=== PATIENT | male | born 1950 | race Caucasian/White ===

== ENCOUNTER 2021-02-03 10:10 | Emergency (ER) | payer OTHER, MEDICARE ==
[~2021-02-03] VITALS: Ht 185.4 cm; Wt 108.9 kg
[~2021-02-03 10:10] MED LIST: ATEN25 PO; ATOR20 PO; CYAN500 PO; METF500 PO; MIRALAX17 GM PO; NOVOLIN 70100 UNIT/4 SC; OMEP20ER PO; PREG200 PO; Prinivil10 MG; SENN187 PO; SILD50TA PO; TAMS.4ER PO
[2021-02-03] MEDS ORDERED: ATOR10 PO (10:30)
[2021-02-03] MEDS ORDERED: ATEN25 PO (10:30)
[2021-02-03] MEDS ORDERED: B-121000 MC4 PO (10:31)
[2021-02-03] MEDS ORDERED: FAMO20 PO (10:31)
[2021-02-03] MEDS ORDERED: NOVOLIN 70100 UNIT/3 SC ×2 (10:31)
[2021-02-03] MEDS ORDERED: Prinivil10 MG PO (10:32)
[2021-02-03] MEDS ORDERED: LATANOPROST2.5 M3 BOTHEYES (10:32)
[2021-02-03] MEDS ORDERED: METF500 PO (10:32)
[2021-02-03] MEDS ORDERED: Percocet 5-3251 EACH PO (10:33)
[2021-02-03] MEDS ORDERED: SENN187 PO (10:33)
[2021-02-03] MEDS ORDERED: SILD50TA PO (10:33)
[2021-02-03] MEDS ORDERED: Vitamin B Comple1 EA PO (10:34)
[2021-02-03] MEDS ORDERED: TAMS.4ER PO (10:34)
[2021-02-03 10:53] LABS: BASOPHILS ABSOLUTE AUTO 0.04 K/mm3 (0.00-0.23); BASOPHILS PERCENT AUTO 1 % (0-2); EOSINOPHILS ABSOLUTE AUTO 0.27 K/mm3 (0.00-0.68); EOSINOPHILS PERCENT AUTO 4 % (0-6); Hematocrit 40.9 % (37.0-53.0); Hemoglobin 13.2 g/dL (13.5-17.5); IMMATURE GRAN ABSOLUTE AUTO 0.02 K/mm3 (0.00-0.10); IMMATURE GRAN PERCENT AUTO 0 % (0-1); LYMPHOCYTES ABSOLUTE AUTO 1.31 K/mm3 (0.84-5.20); LYMPHOCYTES PERCENT AUTO 18 % (21-46); MONOCYTES ABSOLUTE AUTO 0.63 K/mm3 (0.16-1.47); MONOCYTES PERCENT AUTO 9 % (4-13); Mean Corpuscular HGB 28.7 pg (26.0-34.0); Mean Corpuscular HGB Conc 32.3 g/dL (31.5-36.5); Mean Corpuscular Volume 89 fL (80-100); Mean Platelet Volume 11.2 fL (9.1-12.4); NEUTROPHILS ABSOLUTE AUTO 5.07 K/mm3 (1.96-9.15); NEUTROPHILS PERCENT AUTO 69 % (41-73); Platelet Count 164 K/mm3 (150-400); RDW Coefficient Variation 14.1 % (11.7-14.2); RDW Standard Deviation 45.7 fL (35.1-46.3); White Blood Cell Count 7.34 K/mm3 (4.00-11.30)
[2021-02-03 11:09] LABS: Alanine Aminotransfer (ALT/SGP 27 U/L (12-78); Albumin, Blood 3.2 g/dL (3.4-5.0); Albumin/Globulin Ratio 0.9 (0.8-1.8); Alk Phos 111 U/L (50-136); Anion Gap 4 mmol/L (6-16); Aspartate Aminotrans (AST/SGOT 14 U/L (12-37); Bilirubin, Total 0.4 mg/dL (0.1-1.0); Blood Urea Nitrogen 30 mg/dL (8-24); Bun/Creatinine Ratio 25.2 (12.0-20.0); CO2, Blood 27 mmol/L (21-32); Calcium, Blood 8.6 mg/dL (8.5-10.1); Chloride, Blood 107 mmol/L (98-108); Creatinine, Blood 1.19 mg/dL (0.60-1.20); Globulin, Blood 3.7 g/dL (2.2-4.0); Glomerular Filtration Rate >60 (60-); Glucose, Blood 292 mg/dL (70-99); Potassium, Blood 4.4 mmol/L (3.5-5.5); Sodium, Blood 138 mmol/L (136-145); Total Protein, Blood 6.9 g/dL (6.4-8.2)
[2021-02-03 12:37] LABS: Troponin I <0.015 ng/mL (0.000-0.040)
[2021-02-03] MEDS ORDERED: MECL12.5 PO (14:42)
== END 2021-02-03 15:21 | disposition home or self-care (01) ==
LOC: ER 10:10
PROVIDERS: Emergency Medicine
DX: R42 Dizziness and giddiness (principal); I10 Essential (primary) hypertension; E78.5 Hyperlipidemia, unspecified; Z79.4 Long term (current) use of insulin; Z79.899 Other long term (current) drug therapy
CPT/HCPCS: 70450; 71046; 80053; 82947; 83690; 84484; 85025; 93005; 93010; 99285-25; A9270; J7030

== ENCOUNTER 2021-04-29 17:47 | Inpatient (IN) | payer OTHER, MEDICARE ==
[~2021-04-29] VITALS: Ht 185.4 cm; Wt 113.4 kg
[~2021-04-29 17:47] MED LIST changes: +ATOR10 PO; +B-121000 MC4 PO; +FAMO20 PO; +LATANOPROST2.5 M3 BOTHEYES; +MECL12.5 PO; +NOVOLIN 70100 UNIT/3 SC; +Percocet 5-3251 EACH PO; +Prinivil10 MG PO; +Vitamin B Comple1 EA PO
[2021-04-29 18:21] LABS: BASOPHILS ABSOLUTE AUTO 0.01 K/mm3 (0.00-0.23); BASOPHILS PERCENT AUTO 0 % (0-2); EOSINOPHILS PERCENT AUTO 0 % (0-6); Hematocrit 41.3 % (37.0-53.0); Hemoglobin 13.8 g/dL (13.5-17.5); IMMATURE GRAN ABSOLUTE AUTO 0.09 K/mm3 (0.00-0.10); IMMATURE GRAN PERCENT AUTO 1 % (0-1); LYMPHOCYTES ABSOLUTE AUTO 0.56 K/mm3 (0.84-5.20); LYMPHOCYTES PERCENT AUTO 5 % (21-46); MONOCYTES ABSOLUTE AUTO 0.51 K/mm3 (0.16-1.47); MONOCYTES PERCENT AUTO 4 % (4-13); Mean Corpuscular HGB 28.1 pg (26.0-34.0); Mean Corpuscular HGB Conc 33.4 g/dL (31.5-36.5); Mean Corpuscular Volume 84 fL (80-100); Mean Platelet Volume 11.5 fL (9.1-12.4); NEUTROPHILS ABSOLUTE AUTO 10.43 K/mm3 (1.96-9.15); NEUTROPHILS PERCENT AUTO 90 % (41-73); Platelet Count 197 K/mm3 (150-400); RDW Coefficient Variation 14.1 % (11.7-14.2); RDW Standard Deviation 43.7 fL (35.1-46.3); Red Blood Cell Count 4.91 M/mm3 (4.30-5.90)
[2021-04-29 19:02] LABS: Albumin, Blood 2.7 g/dL (3.4-5.0); Albumin/Globulin Ratio 0.6 (0.8-1.8); Bilirubin, Total 0.4 mg/dL (0.1-1.0); Bun/Creatinine Ratio 31.4 (12.0-20.0); Calcium, Blood 9.1 mg/dL (8.5-10.1); Creatinine, Blood 2.2 mg/dL (0.60-1.20); Globulin, Blood 4.6 g/dL (2.2-4.0); Potassium, Blood 5.3 mmol/L (3.5-5.5); Total Protein, Blood 7.3 g/dL (6.4-8.2)
[2021-04-29 19:54] LABS: Base Excess Venous -3.9 mmol/L; PCO2 Venous 39.1 mmHg (38-42); PO2 Venous 45.1 mmHg (38-42); pH Blood Venous 7.35 (7.34-7.37)
[2021-04-29 19:56] LABS: Beta-hydroxybutyrate 24.2 mg/dL (0.2-2.8); Troponin I 0.06 ng/mL (0.000-0.040)
[2021-04-29 21:02] LABS: SARS-Cov-2 (COVID-19) PCR, MMC POSITIVE (NEGATIVE)
[2021-04-29 21:03] LABS: Source, Urine Catheter
[2021-04-29 21:06] LABS: Bilirubin, Urine Neg (Neg); Blood, Urine 4+ (Neg); Glucose Qualitative, Urine 4+ (Neg); Ketones, Urine 2+ (Neg); Leukocyte Esterase, Urine Neg (Neg); Nitrite, Urine Neg (Neg); Protein, Urine 2+ (Neg); Urobilinogen, Urine NORM (Normal)
[2021-04-29 21:14] LABS: Appearance, Urine Clear (Clear); Color, Urine Yellow (P-Yellow)
[2021-04-29 21:15] LABS: Red Blood Cells, Urine 0-2 /hpf (0-2); White Blood Cells, Urine 0-2 /hpf (0-5)
[2021-04-29 21:23] LABS: Squamous Epithelial Cells Rare /hpf (Few)
[2021-04-29 21:24] LABS: Bacteria Few /hpf
[2021-04-29 21:25] LABS: Amorphous Light (0-Heavy)
[2021-04-29 21:27] LABS: Glucose, Blood 640 mg/dL (70-99)
[2021-04-30 01:38] LABS: Glucose, Blood 472 mg/dL (70-99)
[2021-04-30 06:24] LABS: BASOPHILS ABSOLUTE AUTO 0.01 K/mm3 (0.00-0.23); BASOPHILS PERCENT AUTO 0 % (0-2); EOSINOPHILS PERCENT AUTO 0 % (0-6); Hematocrit 39.4 % (37.0-53.0); Hemoglobin 13.3 g/dL (13.5-17.5); Mean Corpuscular HGB 28.3 pg (26.0-34.0); Mean Corpuscular HGB Conc 33.8 g/dL (31.5-36.5); Mean Corpuscular Volume 84 fL (80-100); Mean Platelet Volume 11.2 fL (9.1-12.4); Platelet Count 183 K/mm3 (150-400); White Blood Cell Count 10.61 K/mm3 (4.00-11.30)
[2021-04-30 06:27] LABS: IMMATURE GRAN ABSOLUTE AUTO 0.08 K/mm3 (0.00-0.10); IMMATURE GRAN PERCENT AUTO 1 % (0-1); LYMPHOCYTES ABSOLUTE AUTO 0.62 K/mm3 (0.84-5.20); LYMPHOCYTES PERCENT AUTO 6 % (21-46); MONOCYTES ABSOLUTE AUTO 0.33 K/mm3 (0.16-1.47); MONOCYTES PERCENT AUTO 3 % (4-13); NEUTROPHILS ABSOLUTE AUTO 9.57 K/mm3 (1.96-9.15); NEUTROPHILS PERCENT AUTO 90 % (41-73)
[2021-04-30 06:55] LABS: Troponin I 0.065 ng/mL (0.000-0.040)
[2021-04-30 07:00] LABS: Albumin, Blood 2.4 g/dL (3.4-5.0); Albumin/Globulin Ratio 0.5 (0.8-1.8); Bilirubin, Total 0.3 mg/dL (0.1-1.0); Bun/Creatinine Ratio 37.2 (12.0-20.0); Calcium, Blood 9.3 mg/dL (8.5-10.1); Creatinine, Blood 1.48 mg/dL (0.60-1.20); Globulin, Blood 4.6 g/dL (2.2-4.0); Potassium, Blood 4.4 mmol/L (3.5-5.5)
[2021-04-30 07:17] LABS: Creatine Kinase MB 2.1 ng/mL (0.0-3.6); Creatine Kinase MB Index 0.3 (0.0-4.0)
--- NOTE | 2021-04-30 10:53 | NUR ---
Echocardiogram completed.
[2021-04-30 11:51] LABS: Troponin I 0.05 ng/mL (0.000-0.040)
--- NOTE | 2021-04-30 12:00 | NUR ---
UPDATE BLOOD SUGAR WAS CHECKED READING 164. INSULIN GTT WAS TITRATED DOWN TO 5 U/HR. CALL PLACED TO DR. KENYON. ORDERS TO STOP INSULIN GTT AND LET PATIENT EAT ADA DIET. BLOOD SUGAR TO BE RECHECKED AND MANAGED WITH MEDIUM SLIDING SCALE.
[2021-04-30 12:06] LABS: Creatine Kinase MB 2.7 ng/mL (0.0-3.6); Creatine Kinase MB Index 0.4 (0.0-4.0)
--- NOTE | 2021-04-30 12:28 | NUR ---
Pt arrived from ED, CBG taken noted below 200. Insulin gtt still infusing at 7 on arrival. CAll to Dr[address] Wilkinson to update on pt condition. New orders received. PT is sitting up in bed, eating lunch while primary RN is in room, doing nursing admission to the unit.
--- NOTE | 2021-04-30 15:23 | NUR ---
UPDATE PATIENT'S OXYGEN SATURATION DROPPED TO LOW 80S WITH MINIMAL EXERTION. NC CANNULA WAS CHANGED OVER TO OXYMIZER AT 10L. OXYGEN SATURATION MAINTAINING LOW TO MID 90S AT THIS TIME. PATIENT ENCOURAGED TO COUGH/DEEP BREATHE. PROVIDED WITH INCENTIVE SPIROMETER AND GREEN FLUTTER VALVE. PATIENT CURRENTLY SITTING UP IN CHAIR WITH THE HELP OF 2 STAFF MEMBERS, RESTING. CALL LIGHT IN REACH. BED ALARM ON.
--- NOTE | 2021-04-30 16:24 | NUR ---
97% spo2 on oximizer 10 l/min flow. Several minutes later noted spo2 had dropped to 88%. The pt had removed the oxymizer from his face completely. changed to nasal cannula, 3 l/min. He was using flutter valve and spo2 maintained at 88-89%, while still sitting up in chair. Increased oxygen delivery to 5 l/min, spo2 improved to 93% on 5 l/min delivery by n.c.
--- NOTE | 2021-04-30 18:54 | NUR ---
SHIFT SUMMARY PATIENT ADMITTED FROM ED MID MORNING. INSULIN GTT HAS BEEN OFF SINCE 1200, CBG CHECKS AND INSULIN COVERAGE ORDERED. PATIENT WAS ABLE TO GET UP TO CHAIR THIS AFTERNOON AND REMAINED UP TO CHAIR UNTIL AFTER DINNER. PATIENT WAS TRANSFERRED BACK TO BED WITH 2 ASSIST. PATIENT IS CURRENTLY ON 5L NC WITH OXYGEN SATURATION LOW 90%. PATIENT HAS PERIODS OF LOW OXYGEN SATURATION WITH ACTIVITY BUT QUICKLY RECOVERS. INCENTIVE SPIROMETER AND FLUTTER VALVE AT BEDSIDE TABLE. PATIENT HAS REMAINS ALERT AND ORIENTED TO TIME, SELF, AND PLACE. HE NEEDS REMINDED ABOUT KEEPING OXYGEN IN PLACE IN ORDER TO MAINTAIN SATURATIONS. BED ALARM IN PLACE FOR SAFETY. CALL LIGHT IS IN REACH.
--- NOTE | 2021-04-30 23:48 | NUR ---
ANGIOCATH FOUND IN BED WITH PT. OBSERVATION SHOWED THAT RIGHT AC 20G SL PIV WAS INTACT, FLUSHING WITH EASE. LEFT AC 22G PIV WAS NOT FOUND IN PLACE. ANGIOCATH DISCARDED WITH TIP INTACT NOTED. DENIES PAIN, OR DISCOMFORT AT THIS TIME.
--- NOTE | 2021-05-01 12:09 | NUR ---
Disoriented, uncertain of where he is. Having a hard time finding his words. Following directions, and stating simple sentences. Assisted up to the chair to eat lunch at this time. Stated that he didn't feel much like eating, but I encouraged him to eat since he is diabetic. he said, yes, I know. He is eating his lunch in the chair. Oxymizer O2 delivery increased from 10 l/min to 15 l/min during the transfer, as his spo2 dropped to 86% when he sat on the side of the bed. Now at 88-90%. Needs frequent reminders to keep eating. When asked how he feels, he says, :"I don't know." He was very weak and required 2 people for the stand pivot and transfer to the chair at side of bed.
--- NOTE | 2021-05-01 13:01 | NUR ---
assisted back to bed after lunch. He requires 2 people for transfer. Pt states he uses a walker at home. bed alarm on.
--- NOTE | 2021-05-01 18:33 | NUR ---
Pt has been alert, oriented to person, following directions, and surroundings. However, he is not oriented to place, date/time, and frequently forgetful of keeping his oxygen on, despite ongoing reminders all throughout the day. Wearing oxymizer at 10 l/min. C/o feeling exhausted. Appetite less than yesterday. He got up to the chair at lunch time and dinner, using gait belt and FWW. Significant weakness. states that he fell at home. PT states that he uses a walker at home. Noted some small bruises on the right lateral hip. NOrmal sinus rhythm by telemetry monitoring. Vital signs stable, blood sugars are slowly normalizing.
--- NOTE | 2021-05-02 06:15 | NUR ---
LYING ON LEFT SIDE FACING THE DOOR, UNABLE TO TOLERATE ATTEMPTS TO PRONE. HAS RESTED OFF AND ON THIS SHIFT. DROPLETTE PRECAUTIONS CONTINUE TO BE IN PLACE. CONTINUES ON O2 AT 5L/NC, TOLERATING WELL. BEDDING, GOWN, AND PULL UP CHANGED PRN D/T INCONTINENCE. PT CONTINUES TO TRY TO SIT ON THE SIDE OF THE BED WHEN HE FEELS THE URGE TO URINATE. BED ALARM ON AND ACTIVE. HAS BECOME A BIT MORE AWARE OF HIS NEEDS. O2 REAPPLIED MULTIPLE TIMES WHEN PT TAKES IT OFF AND LAYS IT IN THE BED NEXT TO HIM IN THE BED. DENIES FURTHER NEEDS OR WANTS AT THIS TIME. SAFETY MEASURES IN PLACE. WILL CONTINUE TO MONITOR AND GIVE HAND OFF TO ONCOMING SHIFT USING SBAR DURING BEDSIDE REPORT.
[2021-05-02 12:10] LABS: BASOPHILS ABSOLUTE AUTO 0.03 K/mm3 (0.00-0.23); BASOPHILS PERCENT AUTO 0 % (0-2); EOSINOPHILS PERCENT AUTO 0 % (0-6); Hematocrit 41.7 % (37.0-53.0); Hemoglobin 14.3 g/dL (13.5-17.5); IMMATURE GRAN ABSOLUTE AUTO 0.07 K/mm3 (0.00-0.10); IMMATURE GRAN PERCENT AUTO 1 % (0-1); LYMPHOCYTES ABSOLUTE AUTO 0.42 K/mm3 (0.84-5.20); LYMPHOCYTES PERCENT AUTO 4 % (21-46); MONOCYTES ABSOLUTE AUTO 0.63 K/mm3 (0.16-1.47); MONOCYTES PERCENT AUTO 6 % (4-13); Mean Corpuscular HGB 28.2 pg (26.0-34.0); Mean Corpuscular HGB Conc 34.3 g/dL (31.5-36.5); Mean Corpuscular Volume 82 fL (80-100); Mean Platelet Volume 11.4 fL (9.1-12.4); NEUTROPHILS ABSOLUTE AUTO 10.07 K/mm3 (1.96-9.15); NEUTROPHILS PERCENT AUTO 90 % (41-73); Platelet Count 263 K/mm3 (150-400); RDW Standard Deviation 41.3 fL (35.1-46.3); Red Blood Cell Count 5.07 M/mm3 (4.30-5.90); White Blood Cell Count 11.22 K/mm3 (4.00-11.30)
[2021-05-02 12:24] LABS: Albumin, Blood 2.4 g/dL (3.4-5.0); Anion Gap 10 mmol/L (6-16); Blood Urea Nitrogen 44 mg/dL (8-24); Bun/Creatinine Ratio 40.7 (12.0-20.0); CO2, Blood 21 mmol/L (21-32); Calcium, Blood 9.5 mg/dL (8.5-10.1); Chloride, Blood 115 mmol/L (98-108); Creatinine, Blood 1.08 mg/dL (0.60-1.20); Glomerular Filtration Rate >60 (60-); Glucose, Blood 153 mg/dL (70-99); Phosphorus, Blood 2.6 mg/dL (2.5-4.9); Potassium, Blood 4.1 mmol/L (3.5-5.5); Sodium, Blood 146 mmol/L (136-145)
--- NOTE | 2021-05-02 18:27 | NUR ---
PT TRANSFERRED TO [facility] IN [place], [place]. VITAL SIGNS STABLE. PT WAS SENT WITH BELONGINGS. PT WAS ABLE TO GET CT SCAN, LAB WORK, ADDITIONAL MEDS ADMINISTERED PRIOR TO ADMISSION. NURSE BARBER SPOKE TO PT'S KRISTEN AND INFORMED HER OF PT BEING TRANSFERRED.
== END 2021-05-02 15:02 | DRG 177 ==
LOC: ER 17:47 → SURS 19:58 → ERHOLD 19:58 → SURS 04-30 11:52
PROVIDERS: Internal Medicine; Student in an Organized Health Care Education/Training Program; ADMIT Internal Medicine
PROC: 8E0ZXY6 Isolation (ICD-10-PCS; principal; 2021-04-29)
PROC: 3E0333Z Introduction of Anti-inflammatory into Peripheral Vein, Percutaneous Approach (ICD-10-PCS; 2021-04-29)
PROC: XW033E5 Introduction of Remdesivir Anti-infective into Peripheral Vein, Percutaneous Approach, New Technology Group 5 (ICD-10-PCS; 2021-04-29)
DX: U07.1 COVID-19 (principal); J96.01 Acute respiratory failure with hypoxia; J12.82 Pneumonia due to coronavirus disease 2019; N17.9 Acute kidney failure, unspecified; G93.40 Encephalopathy, unspecified; E86.0 Dehydration; N18.9 Chronic kidney disease, unspecified; R77.8 Other specified abnormalities of plasma proteins; I12.9 Hypertensive chronic kidney disease with stage 1 through stage 4 chronic kidney disease, or unspecified chronic kidney disease; E11.22 Type 2 diabetes mellitus with diabetic chronic kidney disease; E11.65 Type 2 diabetes mellitus with hyperglycemia; E78.5 Hyperlipidemia, unspecified; Z79.4 Long term (current) use of insulin; Z79.899 Other long term (current) drug therapy; Z98.890 Other specified postprocedural states
CPT/HCPCS: 36415; 70450; 71045; 80053; 80069; 81001; 82010; 82550; 82553; 82803; 82947; 83605; 83880; 84484; 85025; 87040; 93005; 93010; 93306; 94762; 96361; 96374; 96375; 99285-25; A9270; J1100; J1650; J1815; J7030; J7120; U0004

== ENCOUNTER 2022-03-30 11:08 | Day surgery (SDC) | payer OTHER ==
[~2022-03-30] VITALS: Ht 185.4 cm; Wt 104.2 kg
--- NOTE | 2022-03-30 11:34 | NUR ---
03/30/22 1134 Tawnya Desai LEFT EYE @1125 [facility]ATRIZ LEFT EYE @ 1127 BY [facility].RONNIE
== END 2022-03-30 13:05 | disposition home or self-care (01) ==
LOC: ORSCSDS 11:08
PROVIDERS: Ophthalmology
PROC: 08RK3JZ Replacement of Left Lens with Synthetic Substitute, Percutaneous Approach (ICD-10-PCS; principal; 2022-03-30 12:30)
DX: H25.12 Age-related nuclear cataract, left eye (principal); H52.202 Unspecified astigmatism, left eye; E11.9 Type 2 diabetes mellitus without complications; I10 Essential (primary) hypertension; K21.9 Gastro-esophageal reflux disease without esophagitis; Z79.84 Long term (current) use of oral hypoglycemic drugs; Z79.899 Other long term (current) drug therapy
CPT/HCPCS: 82947; J2001; J2250; J3010; J3301; J7040; V2632

== ENCOUNTER 2022-04-06 09:58 | Day surgery (SDC) | payer OTHER ==
[~2022-04-06] VITALS: Ht 185.4 cm; Wt 103.8 kg
[2022-04-06] MEDS ORDERED: OZEMPIC1 MG/0.72 SQ (10:46)
--- NOTE | 2022-04-06 10:54 | NUR ---
04/06/22 1054 Rekha Vu AT 1040 [facility] 1041
== END 2022-04-06 12:12 | disposition home or self-care (01) ==
LOC: ORSCSDS 09:58
PROVIDERS: Ophthalmology
PROC: 08RJ3JZ Replacement of Right Lens with Synthetic Substitute, Percutaneous Approach (ICD-10-PCS; principal; 2022-04-06 11:30)
DX: H25.11 Age-related nuclear cataract, right eye (principal); H21.81 Floppy iris syndrome; I10 Essential (primary) hypertension; K21.9 Gastro-esophageal reflux disease without esophagitis; E11.9 Type 2 diabetes mellitus without complications; Z79.899 Other long term (current) drug therapy; Z79.84 Long term (current) use of oral hypoglycemic drugs
CPT/HCPCS: 82947; J2001; J2250; J3010; J3301; J7040; V2632